=== PATIENT | female | born 1985 | race African-American/Black ===

== ENCOUNTER 2022-07-10 18:49 | Inpatient (IN) | payer OTHER ==
[2022-07-10 19:41] VITALS: BMI 26.2
[2022-07-10] MEDS ORDERED: NALOXONE HCL 0.4 MG/ML VIAL IM PRN (21:20)
[2022-07-10] MEDS ORDERED: NALOXONE HCL (KLOXXADO) 8 MG SPRAY NS PRN (21:20)
[2022-07-10] MEDS ORDERED: MAGNESIUM HYDROX 2400MG/30ML ORAL SUSPENSION 30 ML CUP PO PRN (21:20)
[2022-07-10] MEDS ORDERED: METHOCARBAMOL 500 MG TABLET PO PRN (21:20)
[2022-07-10] MEDS ORDERED: MAG HYDROX/AL HYDROX/SIMETH 30 ML UNIT-DOSE CUP PO PRN (21:20)
[2022-07-10] MEDS ORDERED: BENZONATATE 200 MG CAPSULE PO PRN (21:20)
[2022-07-10] MEDS ORDERED: IBUPROFEN 400 MG TABLET (FP) PO PRN (21:20)
[2022-07-10] MEDS ORDERED: hydrOXYzine PAMOATE 25 MG CAPSULE (FP) PO PRN (21:20)
[2022-07-10] MEDS ORDERED: ACETAMINOPHEN 325 MG TABLET (FP) PO PRN (21:20)
[2022-07-10] MEDS ORDERED: ONDANSETRON *ODT* 4 MG TABLET SL PRN (21:20)
[2022-07-10] MEDS ORDERED: DICYCLOMINE HCL 10 MG CAPSULE PO PRN (21:20)
[2022-07-10] MEDS ORDERED: guaiFENesin 600 MG TABLET.ER (FP) PO PRN (21:20)
[2022-07-10] MEDS ORDERED: LOPERAMIDE HCL 2 MG CAPSULE PO PRN (21:20)
[2022-07-10] MEDS ORDERED: BISMUTH SUBSALICYLATE 524 MG/30 ML PO PRN (21:20)
[2022-07-10] MEDS ORDERED: POLYETHYLENE GLYCOL (HEALTHYLAX) 3350 17 GM PACKET PO PRN (21:20)
[2022-07-10] MEDS ORDERED: BENZOCAINE/MENTHOL (CHLORASEPTIC ) LOZENGE MM PRN (21:20)
[2022-07-10] MEDS ORDERED: MELATONIN 5 MG TABLETS PO SCH (22:00)
[2022-07-10] MEDS ORDERED: THIAMINE HCL 100 MG TABLET (FP) PO SCH (22:00)
[2022-07-10] MEDS ORDERED: IBUPROFEN 600 MG TABLET (FP) PO ONE (22:50)
[2022-07-10] MEDS: IBUPROFEN 600 MG TABLET (FP) PO PRN (22:57)
[2022-07-11 06:05] VITALS: RESP 18
[2022-07-11 10:03] LABS: POTASSIUM 4.3 mmol/L (3.5-5.1)
[2022-07-11 10:07] LABS: CALCIUM 9.6 mg/dL (8.5-10.1)
[2022-07-11 10:08] LABS: BLOOD UREA NITROGEN 13.8 mg/dL (7-18); HEMATOCRIT 38.1 % (32.4-45.2); HEMOGLOBIN 13.1 GM/dL (10.7-15.3); MCH 32.5 pg (25.7-33.7); MCHC 34.5 g/dl (32.0-36.0); MEAN CELL VOLUME 94.3 fl (80-96); MEAN PLT VOLUME 8.1 fl (7.5-11.1); PLATELET COUNT 322 10^3/uL (134-434); RBC 4.04 M/mm3 (3.60-5.2); RDW 12.7 % (11.6-15.6); WHITE BLOOD COUNT 7.8 K/mm3 (4.0-10.0)
[2022-07-11] MEDS ORDERED: ALBUTEROL SO4 HFA INHALER IH PRN (10:08)
[2022-07-11 10:11] LABS: CREATININE 0.8 mg/dL (0.55-1.3)
[2022-07-11 10:12] LABS: BILIRUBIN,TOTAL 0.5 mg/dL (0.2-1)
[2022-07-11] MEDS ORDERED: TRIAMCINOLONE ACET TP SCH (10:15)
[2022-07-11] MEDS: PRENATAL VITAMINS W/ FOLIC ACID TABLET (FP) PO SCH (10:28)
[2022-07-11] MEDS: NICOTINE 14 MG/24 HOURS TOPICAL PATCH TD SCH (10:29)
[2022-07-11 10:37] LABS: SYPHILIS W/ RPR CONF NON-REACTIVE (NONREACTIVE)
[2022-07-11] MEDS: TRIAMCINOLONE ACET 0.1% CREAM 15 GM TUBE TP SCH ×2 (12:22→22:00)
[2022-07-11] MEDS: VITAMINS A AND D TOPICAL OINTMENT 60 GM TUBE TP SCH ×2 (14:12→18:55)
[2022-07-11] MEDS: IBUPROFEN 600 MG TABLET (FP) PO PRN (17:32)
[2022-07-11] MEDS: NICOTINE POLACRILEX 2 MG GUM BUC PRN (17:36)
[2022-07-12] MEDS: NICOTINE POLACRILEX 2 MG GUM BUC PRN (07:45)
[2022-07-12] MEDS: TRIAMCINOLONE ACET 0.1% CREAM 15 GM TUBE TP SCH (09:23)
[2022-07-12] MEDS: PRENATAL VITAMINS W/ FOLIC ACID TABLET (FP) PO SCH (09:23)
[2022-07-12] MEDS: NICOTINE 14 MG/24 HOURS TOPICAL PATCH TD SCH (09:23)
[2022-07-12 09:56] VITALS: BP 130/87; PULSE 81; TEMP 98
[2022-07-12 21:15] LABS: HIV INTERPRETATION NEGATIVE (NEGATIVE)
== END 2022-07-12 09:22 | disposition home or self-care (01) | DRG 775 ==
LOC: YASAS 18:49 → Y6N 22:45
PROVIDERS: ADMIT Allergy & Immunology; ATTEND Surgery
PROC: HZ2ZZZZ Detoxification Services for Substance Abuse Treatment (ICD-10-PCS; principal; 2022-07-10)
DX: F10.230 Alcohol dependence with withdrawal, uncomplicated (principal); F12.20 Cannabis dependence, uncomplicated; F17.210 Nicotine dependence, cigarettes, uncomplicated; F19.24 Other psychoactive substance dependence with psychoactive substance-induced mood disorder; J45.20 Mild intermittent asthma, uncomplicated; L30.9 Dermatitis, unspecified; Z86.59 Personal history of other mental and behavioral disorders; Z28.310 Unvaccinated for COVID-19; Z28.9 Immunization not carried out for unspecified reason; Z88.0 Allergy status to penicillin; Z91.040 Latex allergy status
CPT/HCPCS: 36415; 80053; 85027; 86780; 87389; 93005; 93010; C9803-CS; U0003; U0005